=== PATIENT | male | born 1980 | race Caucasian/White ===

== ENCOUNTER 2025-03-04 11:40 | Outpatient (CLI) | payer BC, SELFPAY ==
[2025-03-04 13:22] LABS: Thyroid Stimulating Hormone 1.480 uIU/mL (0.465-4.680)
[2025-03-05 16:08] LABS: Deamidated Gliadin Abs, IgA 3 units (0-19); Deamidated Gliadin Abs, IgG 1 units (0-19); Immunoglobulin A, Qn 353 mg/dL (90-386)
== END 2025-03-04 11:41 | disposition home or self-care (01) ==
LOC: ANHGOSHLAB 11:41
PROVIDERS: PCP Internal Medicine; Visit Provider Nurse Practitioner
DX: K59.00 Constipation, unspecified (principal); I10 Essential (primary) hypertension
CPT/HCPCS: 36415; 82784; 84443; 86231; 86258